=== PATIENT | female | born 1940 | race Caucasian/White ===

== ENCOUNTER 2020-03-27 09:14 | Day surgery (SDC) | payer MEDICARE, BC, OTHER ==
[~2020-03-27 09:14] MED LIST: Lactated Ringers 1,000 ML IV SCH; Sodium Chloride 0.9% 10 ML Syringe FLUSH PRN
[2020-03-27] MEDS ORDERED: Lidocaine 4% 5 ML Amp ONE (10:55)
[2020-03-27] MEDS ORDERED: Propofol 200 MG/20 ML SDV ONE (11:02)
[2020-03-27] MEDS ORDERED: fentaNYL 100 MCG/2 ML SDV ONE (11:02)
--- NOTE | 2020-03-27 13:02 | OR ---
PREOPERATIVE DIAGNOSIS: Gastroesophageal reflux disease. POSTOPERATIVE DIAGNOSES: 1. Mild duodenitis in D1. 2. Mild antritis. 3. Friable esophageal mucosa without evidence of esophagitis on entry. 4. Z-line is at 35 cm from the teeth. PROCEDURE PERFORMED: Esophagogastroduodenoscopy. ANESTHESIA: MAC anesthesia. INDICATION FOR PROCEDURE: Ms. Pandya is a 79-year-old female who has been struggling with reflux for some time. She remotely carries a diagnosis of a hiatal hernia, which has never been intervened on. She had a recent upper GI, which did not show a clear hiatal hernia. She is here for upper endoscopy as a component of her GERD workup. Notably, she did recently have a laparoscopic cholecystectomy, after which she feels much better. DETAILS OF PROCEDURE: After informed consent was obtained, the patient was brought to the procedure room and placed in left lateral decubitus position. A bite block was inserted. MAC anesthesia was induced by Anesthesia colleagues without incident. The endoscope was introduced into the oropharynx through the upper esophageal sphincter down the esophagus into the stomach. The pylorus was intubated and the duodenum was examined up into the portion of D3. We saw mild antritis and mild duodenitis in D1. We took biopsies of the antrum, which will be sent for H pylori. On retroflexed views, she had a Hill grade 1 hiatus. I did not see any other pathology within the stomach. On withdrawal up to the to the esophagus, we noted the Z-line to be at 35 cm. I did not appreciate significant hiatal hernia. As we withdrew back farther to the examining esophagus, we noticed that there was some blood which was not present on the way in. On entry, the esophagus appeared essentially normal. We noticed several what appeared to be mucosal breaks with some resultant bleeding. These were located in the lower 3rd of the esophagus. She has had prior dilations, although currently has no dysphagia. It is unclear why she developed these mucosal tears during her endoscopies. I feel confident that they were not present on entry. Perhaps some of the looping along the greater curve as the duodenum was examined, which normally occurs, put some tension on the lower esophagus. I wonder if her multiple dilations in the past have caused some scarring perhaps and less compliance with a bit of looping of the scope. Anyway, there was no large volume bleeding and there did not appear to be any evidence of a full-thickness injury. The remainder of the esophagus was normal in appearance. The endoscope was withdrawn. The patient was awoken from anesthesia by Anesthesia colleagues without incident. I will see her in clinic in a couple of weeks to discuss the pros and cons of anti- reflux surgery, although she is currently on the fence regarding this. PATHOLOGY: Stomach, antrum Reactive gastropathy with superimposed mild chronic gastritis Negative for Helicobacter pylori RKM: 03/27/2020 11:22:54 MODL: 03/27/2020 12:50:11 /[id number] MTDD
--- NOTE | 2020-04-04 11:38 | LETTER ---
04/03/2020 RE: SHERLEY LIAO HO : 1940 [address] [place] [id number] Dear Ms. Ho: I am writing to inform you of the results of your recent upper endoscopy. You had some mild inflammation in your stomach. There were no other abnormalities. I will see you in clinic as we discussed to have a more thorough conversation about anti-reflux surgery and whether or not it is appropriate for you. Warmest regards,
== END 2020-03-27 12:20 | disposition home or self-care (01) ==
LOC: VM.SDS 09:14
PROVIDERS: ATTEND Student in an Organized Health Care Education/Training Program
DX: K29.51 Unspecified chronic gastritis with bleeding (principal); K29.61 Other gastritis with bleeding; K29.81 Duodenitis with bleeding; K44.9 Diaphragmatic hernia without obstruction or gangrene; I10 Essential (primary) hypertension; F41.0 Panic disorder [episodic paroxysmal anxiety]; K21.9 Gastro-esophageal reflux disease without esophagitis; E78.5 Hyperlipidemia, unspecified; E78.1 Pure hyperglyceridemia; G47.00 Insomnia, unspecified; M81.0 Age-related osteoporosis without current pathological fracture; Z11.59 Encounter for screening for other viral diseases; Z90.49 Acquired absence of other specified parts of digestive tract; Z98.890 Other specified postprocedural states; Z79.899 Other long term (current) drug therapy; Z79.82 Long term (current) use of aspirin; Z88.2 Allergy status to sulfonamides; Z87.891 Personal history of nicotine dependence; Z88.1 Allergy status to other antibiotic agents; Z91.013 Allergy to seafood
CPT/HCPCS: 00731; 43239; 88305; 88342; J2704; J3010; J7120; U0002

== ENCOUNTER 2021-11-13 13:00 | Emergency (ER) | payer MEDICARE, BC ==
[2021-11-13] MEDS ORDERED: Sodium Chloride 0.9% 10 ML Syringe FLUSH PRN (13:53)
[2021-11-13] MEDS ORDERED: LORazepam 2 MG/ML SDV IVPUSH ONE (13:54)
[2021-11-13] MEDS ORDERED: Ondansetron 4 MG/2 ML SDV IVPUSH ONE (13:54)
[2021-11-13 14:31] LABS: CHLORIDE,CL 102 mmol/L (98-107); SODIUM,NA 142 mmol/L (136-145)
[2021-11-13 14:34] LABS: ANION GAP 14.2 mmol/L (5-15)
== END 2021-11-13 15:30 | disposition home or self-care (01) ==
LOC: VM.ED 13:00
DX: R42 Dizziness and giddiness (principal); E78.00 Pure hypercholesterolemia, unspecified; I10 Essential (primary) hypertension; K21.9 Gastro-esophageal reflux disease without esophagitis; Z88.1 Allergy status to other antibiotic agents; Z88.2 Allergy status to sulfonamides; Z91.018 Allergy to other foods; Z79.82 Long term (current) use of aspirin; Z79.899 Other long term (current) drug therapy
CPT/HCPCS: 36415; 70450; 80053; 83735; 84100; 84484; 85025; 86140; 93005; 96374; 96375; 99284; J2060; J2405; J3490; 93010